=== PATIENT | male | born 1950 | race Caucasian/White ===

== ENCOUNTER 2018-01-24 13:47 | Outpatient (CLI) | payer MEDICARE, OTHER ==
[~2018-01-24 13:47] MED LIST: ACHYD1T PO; ALBU8.5H2 IH; BUDE6HFA IH; CHOL50003 PO; GLUC-132 PO; HYDR-1231 PO; LVF250T PO; MNTL10T PO; NITR-33 PO; OMEP-10 PO; ONDA-43 PO
== END 2018-01-24 14:10 | disposition home or self-care (01) ==
LOC: SLEEP 13:47
PROVIDERS: ATTEND Nurse Practitioner Family
DX: G47.10 Hypersomnia, unspecified (principal); G47.50 Parasomnia, unspecified; D86.9 Sarcoidosis, unspecified

== ENCOUNTER → 2018-03-06 | Outpatient (CLI) | payer MEDICARE, OTHER ==
[~2018-03-06] MED LIST changes: +RT-ALBUTEROL SULF 2.5 MG/3 ML PRE-MIX VIAL INH ONE; +RT-ALBUTEROL SULF 2.5 MG/3 ML PRE-MIX VIAL ONE
== END ==
LOC: RT 08:04
PROVIDERS: ATTEND Nurse Practitioner Family
DX: J45.909 Unspecified asthma, uncomplicated (principal); D86.9 Sarcoidosis, unspecified; R05 Cough
CPT/HCPCS: 94060; 94726; 94729

== ENCOUNTER → 2020-05-05 | Outpatient (CLI) | payer MEDICARE, OTHER ==
[~2020-05-05] MED LIST changes: -RT-ALBUTEROL SULF 2.5 MG/3 ML PRE-MIX VIAL INH ONE; -RT-ALBUTEROL SULF 2.5 MG/3 ML PRE-MIX VIAL ONE
== END ==
LOC: LABNPT 04:56
PROVIDERS: ATTEND Nurse Practitioner Family
DX: U07.1 COVID-19 (principal)
CPT/HCPCS: 87635

== ENCOUNTER → 2020-05-07 | Outpatient (CLI) | payer MEDICARE, OTHER ==
[~2020-05-07] VITALS: Ht 177 cm; Wt 95.0 kg
[~2020-05-07] MED LIST changes: +BAMLANIVIMAB (NON FORM) 700 MG in NS (IVPB) 100 ML IV ONE; +EPINEPHrine INJECTION 1 MG/ML AMP IM PRN; +diphenhydrAMINE 50 MG/ML INJ (BENADRYL) IV PRN
[2020-05-07 08:20] VITALS: BP 140/82
[2020-05-07 09:47] VITALS: BP 126/73
== END ==
LOC: INFUSION 08:27
PROVIDERS: ATTEND Nurse Practitioner Family
DX: Z23 Encounter for immunization (principal); U07.1 COVID-19

== ENCOUNTER 2020-10-20 08:00 | Emergency (ER) | payer MEDICARE, OTHER ==
[~2020-10-20] VITALS: Ht 177.8 cm; Wt 90.7 kg
[~2020-10-20 08:00] MED LIST changes: -BAMLANIVIMAB (NON FORM) 700 MG in NS (IVPB) 100 ML IV ONE; -EPINEPHrine INJECTION 1 MG/ML AMP IM PRN; -diphenhydrAMINE 50 MG/ML INJ (BENADRYL) IV PRN
[2020-10-20 08:21] LABS: BILIRUBIN,URINE NEGATIVE (NEGATIVE); CLARITY,URINE CLOUDY; COLOR,URINE YELLOW; GLUCOSE, URINE (UA) NEGATIVE (NEGATIVE); KETONES,URINE NEGATIVE (NEGATIVE); LEUKOCYTE ESTERASE ,URINE 3+ (NEGATIVE); NITRITE,URINE POSITIVE (NEGATIVE); PROTEIN,URINE 1+ (NEGATIVE)
[2020-10-20 08:31] LABS: BACTERIA,URINE TRACE /HPF; WBC,URINE >100 /HPF
--- NOTE | 2020-10-20 08:39 | ED GU-Male ---
General Chief Complaint: - Urinary Stated Complaint: FREQUENT URINATION Nursing Triage Note: PT AMB TO FT1 W C/O FEVER, BURNING SENSATION WHEN URINATING, FEELS LIKE SOMETHING IS BLOCKING HIS STREAM, TROUBLE EMPTYING BLADDER, AND FREQUENT URINATION SINCE YESTERDAY. Source: patient, family () Exam Limitations: no limitations (ALESSANDRO RIVERA STUDENT) History of Present Illness Date Seen by Provider: Oct 20, 2020 Time Seen by Provider: 08:30 Initial Comments Pt presents to ED with via private conveyance with complaint of burning and frequency with urination. He states that it started yesterday when he noticed that he had to urinate frequently in small amounts, with associated burning with urination. He experienced fevers/chills overnight and took his temp at home of 100.9F. He was able to produce urine prior to exam and does not feel bladder fullness at time of exam. Denies chest pain, SOB, nausea, vomiting. Timing/Duration: yesterday Severity/Quality: moderate, burning Location: urethral Radiation: none Activities at Onset: physical activity (baling hay) Prior Genitourinary Problems: similar symptoms (history of kidney stones) Sexual [place] History: single partner Modifying Factors: Improves With Analgesics (took ibuprofen prior to arrival with some relief) Associated Symptoms: No abdominal pain; dysuria, fever/chills; No lower back pain, No nausea/vomiting (ALESSANDRO RIVERA STUDENT) Allergies and Home Medications Allergies Coded Allergies: Sulfa (Sulfonamide Antibiotics) (Verified Allergy, Mild, 08/21/13) Uncoded Allergies: COUGH MED (Allergy, Mild, 08/21/13) Home Medications Albuterol 8.5 Gm Hfa.aer.ad, 1 PUFF IH Q4H PRN for SHORTNESS OF BREATH, (Reported) PRN SHORTNESS OF BREATH Budesonide/Formoterol Fumarate 10.2 Gm Hfa.aer.ad, 1 PUFF IH BID PRN for SHORTNESS OF BREATH, (Reported) PRN SHORTNESS OF BREATH Cholecalciferol 5,000 Unit Tablet, 5,000 UNIT PO DAILY, (Reported) Glucosamine/D3/Boswellia Nae 1 Each Tablet, 1 TAB PO DAILY, (Reported) Hydrocodone Bit/Acetaminophen 1 Tab Tablet, 1-2 TAB PO Q6H PRN for PAIN Prescribed by: WYATT LIEBERMAN on 08/22/13 0015 Hydrocodone Bit/Acetaminophen 1 Tab Tablet, 1-2 TAB PO Q4H PRN for PAIN Prescribed by: GERALD YUEN on 08/26/13 151 Levofloxacin 250 Mg Tab, 250 MG PO DAILY, (Reported) TAKE DAILY FOR 4 DAYS, STARTED 08/22/13 Montelukast Sodium 10 Mg Tablet, 10 MG PO HS, (Reported) Nitrofurantoin Macrocrystals 100 Mg Capsule, 1 EACH PO BID Prescribed by: GERALD YUEN on 08/26/131516 Omeprazole 20 Mg Capsule.dr, 20 MG PO DAILY, (Reported) Ondansetron 8 Mg Tab, 8 MG PO Q4H PRN for NAUSEA/VOMITING, (Reported) PRN N/V Patient Home Medication List Home Medication List Reviewed: Yes (BERNADETTE LEBLANC) Review of Systems Review of Systems Constitutional: chills, fever (reported 100.9 at home) EENTM: No blurred vision, No eye pain, No vision loss Respiratory: No cough, No short of breath Cardiovascular: No chest pain, No edema Gastrointestinal: No abdominal pain, No constipation, No diarrhea Genitourinary: burning; denies discharge; dysuria, frequency; denies hematuria Musculoskeletal: No back pain, No joint pain Skin: No change in color, No change in hair/nails Psychiatric/Neurological: Denies Headache, Denies Numbness, Denies Paresthesia (ALESSANDRO RIVERA) All Other Systemes Reviewed Negative Unless Noted: Yes (ALESSANDRO RIVERA) Past Tuwcwge-Ytmkbs-Esnbto Hx Patient Social History Tobacco Use?: No Smoking Status: Never a Smoker Substance use?: No Alcohol Use?: No Pt feels they are or have been: No (ALESSANDRO RIVERA) Immunizations Up To Date First/Initial COVID19 Vaccinat: 10/01/2020 COVID19 Vaccine Perennial House Manager: Cortrium (ALESSANDRO RIVERA) Past Medical History Kidney Stones (ALESSANDRO RIVERA) Physical Exam Vital Signs Vital Signs - First Documented 10/20/20 08:07 Temp 37.5 Pulse 87 Resp 18 B/P (MAP) 106/68 (81) Pulse Ox 98 O2 Delivery Room Air (BERNADETTE LEBLANC) Vital Signs Capillary Refill : Less Than 3 Seconds (ALESSANDRO RIVERA MED STUDENT) Height, Weight, BMI Height: 5'10.00" Weight: 213lbs. oz. 96.148988th; 28.00 BMI Method: General Appearance: WD/WN, no apparent distress HEENT: PERRL/EOMI, normal ENT inspection, pharynx normal Neck: non-tender, full range of motion, supple, normal inspection Cardiovascular: normal peripheral pulses, regular rate, rhythm, no edema, no murmur Respiratory: chest non-tender, lungs clear, normal breath sounds, no re spiratory distress, no accessory muscle use Gastrointestinal: normal bowel sounds, non tender, soft Rectal: deferred Genital/Rectal: other (negative Lloyds punch) Back: normal inspection, no CVA tenderness, no vertebral tenderness Extremities: normal range of motion, non-tender, normal inspection, no pedal edema, no calf tenderness Neurologic/Psychiatric: no motor/sensory deficits, alert, normal mood/affect, oriented x 3 Skin: normal color, warm/dry Lymphatic: no adenopathy ([employer] STUDENT) Progress/Results/Core Measures Suspected Sepsis SIRS Temperature: Pulse: 87 Respiratory Rate: 18 Blood Pressure 106 /68 Mean: 81 ([employer] STUDENT) Results/Orders Lab Results Laboratory Tests Test 10/20/20 08:14 Range/Units Urine Color YELLOW Urine Clarity CLOUDY Urine pH 7.0 5-9 Urine Specific [place] 1.020 1.016-1.022 Urine Protein 1+ H NEGATIVE Urine Glucose (UA) NEGATIVE NEGATIVE Urine Ketones NEGATIVE NEGATIVE Urine Nitrite POSITIVE H NEGATIVE Urine Bilirubin NEGATIVE NEGATIVE Urine Urobilinogen 2.0 < = 1.0 MG/DL Urine Leukocyte Esterase 3+ H NEGATIVE Urine RBC (Auto) 3+ H NEGATIVE Urine RBC NONE /HPF Urine WBC >100 H /HPF Urine Squamous Epithelial Cells NONE /HPF Urine Renal Epithelial Cells NONE /HPF Urine Crystals NONE /LPF Urine Bacteria TRACE /HPF Urine Casts NONE /LPF Urine Mucus LARGE H /LPF Urine Culture Indicated YES (BERNADETTE LEBLANC) My Orders Orders - BERNADETTE LEBLANC Ua Culture If Indicated (10/20/20 08:03) Urine Culture (10/20/20 08:14) Ceftriaxone (Rocephin) (10/20/20 08:45) Lidocaine 1% Inj 20 Ml (Xylocaine 1% Inj (10/20/20 08:45) Bladder Scan (10/20/20 08:39) (BERNADETTE LEBLANC) Vital Signs/I&O 10/20/20 08:07 Temp 37.5 Pulse 87 Resp 18 B/P (MAP) 106/68 (81) Pulse Ox 98 O2 Delivery Room Air (BERNADETTE LEBLANC) Vital Signs/I&O Capillary Refill : Less Than 3 Seconds (ALESSANDRO RIVERA MED STUDENT) Blood Pressure Mean: 81 Progress Note : Time: 09:14 Progress Note Patient's bedside bladder scan reveals 50 cc residual urine. Plan to put him on third-generation cephalosporins and follow-up with either urology or primary care in 1 week. Return precautions discussed. We did discuss further laboratory work-up and inpatient management and at this time the patient would prefer to attempt outpatient therapy and this is an acceptable approach. (BERNADETTE LEBLANC) Departure Impression Primary Impression: Complicated urinary tract infection Disposition: 01 HOME, SELF-CARE Condition: Stable Departure-Patient Inst. Decision time for Depature: 09:15 (BERNADETTE LEBLANC) Referrals: VI MOLINA MD (PCP/Family) Primary Care Physician MOR HOYT MD Patient Instructions: Urinary Tract Infection, Adult (DC) Add. Discharge Instructions: Drink lots of fluids to help flush your bladder out. Tylenol and/or ibuprofen as necessary for pain. Cefdinir 1 capsule twice a day starting this evening. Probiotics 1 capsule twice a day while on antibiotics to prevent diarrhea. Return to the ER if you are unable to tolerate your antibiotics, keep fluids down or other worrisome symptoms. Follow-up in the next week with your primary care doctor or the urologist to assure appropriate resolution of your bladder infection. All discharge instructions reviewed with patient and/or family. Voiced understanding. Scripts Cefdinir (Cefdinir) 300 Mg Capsule 300 MG PO BID for 7 Days, #14 CAP 0 Refills Prov: BERNADETTE LEBLANC 10/20/20 Copy Copies To 1: VI MOLINA MD; MOR HOYT MD, JOHNNY MED STUDENT Oct 20, 2020 08:39 BERNADETTE LEBLANC Oct 20, 2020 09:19
[2020-10-20] MEDS ORDERED: cefTRIAXone 1,000 MG VIAL IM ONE (08:45)
[2020-10-20] MEDS ORDERED: LIDOCAINE 1% INJ 20 ML 20 ML VIAL INJ ONE (08:45)
[2020-10-20] MEDS ORDERED: CEFD300C3 PO (09:24)
[2020-10-20 09:45] VITALS: BP 112/71
== END 2020-10-20 09:45 | disposition home or self-care (01) ==
LOC: EDUNIT# 08:00 → ER 08:02
DX: N39.0 Urinary tract infection, site not specified (principal)
CPT/HCPCS: 81000; 87077; 87088; 99284